=== PATIENT | female | born 1990 | race Two or more races ===

== ENCOUNTER → 2017-02-14 | Outpatient (CLI) | payer OTHER ==
--- NOTE | 2017-02-14 08:38 | RAD ---
EXAM: Left ankle, 3 views. HISTORY: Pain. COMPARISON: 02/02/2011. FINDINGS: Frontal, lateral and mortise views of the left ankle are obtained. There is no fracture, dislocation or subluxation. IMPRESSION: No acute osseous finding.
== END | disposition home or self-care (01) ==
LOC: DXRADRC 07:23
PROVIDERS: ATTEND Physician Assistant Medical
DX: M25.572 Pain in left ankle and joints of left foot (principal)
CPT/HCPCS: 73610